=== PATIENT | male | born 1955 | race African-American/Black ===

== ENCOUNTER 2020-08-10 16:25 | IRF | payer OTHER, MEDICARE, SELFPAY ==
[2020-08-10 16:25] VITALS: BP 144/69; PULSE 77; RESP 20; TEMP 37.1; O2SAT 100; BMI 24.4
--- NOTE | 2020-08-10 17:02 | ADMGEN ---
This patient, Chuy Yap, was admitted to [facility] Room 223-02. Patient/family oriented to hospital policies and general routines including ID bracelet, bed and alarms, visiting hours, pain management, procedures, bathroom and other care routines, personal items, smoking policy, room service/diet, and visiting hours. Valuables list has been completed. Information on how to activate the Rapid Response Team has been discussed. Patient/Family are encouraged to report perceived risks to care and to ask questions if they do not understand what they are told or what they should do. Patient arrived to [facility] at 1625, he is alert and oriented, pleasant is c/o pain to right groin, per ambulance personnel the phi were removed immediately prior to transport. The area is swollen and firm not hot, no drainage. ice pack applied, will continue to monitor. Ashlee made aware of patients arrival
[2020-08-10 19:36] VITALS: BMI 24.4
[2020-08-10 20:20] VITALS: BP 158/65; PULSE 87; RESP 18; TEMP 36.9; O2SAT 100
[2020-08-10] MEDS: ATORVASTATIN 40 MG TABLET PO (20:54)
[2020-08-10] MEDS: APIXABAN 5 MG TABLET PO (20:54)
[2020-08-10 20:55] VITALS: PULSE 86
[2020-08-10] MEDS: carvediloL 6.25 MG TABLET PO (20:55)
[2020-08-10] MEDS: levETIRAcetam 500 MG TABLET 1000 MG PO (20:55)
[2020-08-10] MEDS: INSULIN GLARGINE (*BKC) 100 UNITS/ML 10 UNITS SUB-Q (21:02)
[2020-08-10 22:14] LABS: Glucose Point of Care 224 (65-105)
[2020-08-11 04:54] LABS: Basophils Percent Auto 0.3 % (0.2-1.2); Eosinophils Absolute Auto 0.1 K/mm3 (0-0.3); Eosinophils Percent Auto 0.9 % (0-4.4); Hematocrit 27.2 % (42.0-52.0); Hemoglobin 8.6 g/dL (14.0-18.0); Immature Granulocyte Absolute 0.03 K/mm3 (0.00-0.031); Immature Granulocyte Percent A 0.3 % (0-0.5); Lymphocytes Absolute Auto 1.38 K/mm3 (0.9-3.2); Lymphocytes Percent Auto 15.8 % (18.3-44.2); Mean Corpuscular HGB Conc 31.6 g/dl (32-36); Mean Corpuscular Hemoglobin 27.3 pg (26-34); Mean Corpuscular Volume 86.3 fl (80-100); Mean Platelet Volume 10.1 fl (7.4-10.4); Monocytes Absolute Auto 0.4 K/mm3 (0.1-0.6); Monocytes Percent Auto 4.6 % (2.6-8.5); Neutrophils Absolute Auto 6.8 K/mm3 (1.3-6.7); Neutrophils Percent Auto 78.1 % (45.5-73.1); Platelet Count Result 357 k/mm3 (150-375); Red Blood Count 3.15 M/mm3 (4.6-6.20); Red Cell Distribution Width 14.9 % (11.5-14.5); White Blood Count 8.7 K/mm3 (4.5-10.0)
[2020-08-11 05:03] LABS: Hemoglobin A1C 6.4 % (<5.7)
[2020-08-11 05:06] LABS: Anion Gap 3 mmol/L (8-16); Blood Urea Nitrogen 9 mg/dL (9-20); Carbon Dioxide 25 mmol/L (22-30); Chloride 109 mmol/L (98-107); Cholesterol 137 mg/dL (0-200); Estimated CRCL calculation 111 ml/min; Estimated Glomerular Filt Rate > 60; Glucose 185 mg/dL (75-110); HDL Direct 30 mg/dL; Potassium 4.5 mmol/L (3.4-5.0); Sodium 137 mmol/L (137-145); Triglycerides 126 mg/dL (<150)
[2020-08-11 05:16] LABS: LDL Cholesterol Direct 73 mg/dL
[2020-08-11 05:55] VITALS: BP 145/67; PULSE 75; RESP 18; TEMP 36.4; O2SAT 100
[2020-08-11 06:39] LABS: Glucose Point of Care 183 (65-105)
[2020-08-11 09:03] VITALS: PULSE 75
[2020-08-11] MEDS: levETIRAcetam 500 MG TABLET 1000 MG PO ×2 (09:03→20:46)
[2020-08-11] MEDS: carvediloL 6.25 MG TABLET PO ×2 (09:03→20:45)
[2020-08-11] MEDS: metFORMIN HCL 500 MG TABLET 1000 MG PO (09:03)
[2020-08-11] MEDS: APIXABAN 5 MG TABLET PO ×2 (09:03→20:46)
[2020-08-11] MEDS: lisinopriL 10 MG TABLET PO (09:03)
--- NOTE | 2020-08-11 09:30 | WPDREHABHP ---
H&P: HPI History of Present Illness Date/Time: 08/11/20 10:12 Chief complaint: Stroke/ R AKA Narrative: Chuy Yap is a 65 year old male HISTORY OF PRESENT ILLNESS: The patient's primary rehab impairment category is stroke The etiologic diagnosis is right frontal lobe large hemorrhagic infarct I saw this patient [id number] on August 11, 2020 at 9:30 a.m. The patient is a 65-year-old right-handed Afro Citizen Of [place] male with a past medical history of coronary artery disease, hypertension, hyperlipidemia, and diabetes who presented to [facility] on July 23, 2020 early in the afternoon after being found by family between his bed and dresser. The patient was minimally responsive in incontinent of urine. Reportedly the patient had been complaining of a headache over the past [address] of the head revealed right frontal hemorrhage. Given the presence of hemorrhage on the CT scan of the patient's lack of responsiveness the patient was intubated for airway protection and transferred to [facility]. CT angiography showed no evidence of large vessel occlusion. The brain MRI suggested the hemorrhage may have occurred in the background of and ischemic stroke. There was no evidence of underlying mass or structural defect. The patient was transferred to [facility] ICU for further care and management. The patient arrived intubated and was extubated on July 24, 2020. Neurology was consulted. EEG showed generalized slowing as well as focal phase reversal suggesting structural lesion / possible seizure focus. Given that it is unclear if the patient truly had a seizure was simply of tended and incontinent remains unclear. He was placed on Keppra and has remained on it. Vascular surgery was consulted for right ischemic leg. The patient underwent an open thrombectomy of the right femoral-popliteal segment and a 4 compartment fasciotomy of the right calf on July 28, 2020. Postoperatively experienced acute pain and acute blood loss anemia. The patient was monitored ultimately underwent an above-knee amputation on August 05, [address] Rm. The patient received 1 unit of packed RBCs prior to amputation surgery. Neurology and vascular surgery feel patient would benefit from an acute rehab stay to address acute stroke and new amputation. Patient will require all 3 therapies. The patient will be discharged to rehab and 30 day event monitor which he has on, statin and heparin for DVT prophylaxis however it seems like he is on apixaban at this moment. The patient has not traveled outside the [place] or had contact with someone who is ill that has traveled outside the use in the past 21 days. Patient has not traveled to an area of the [place] that is experiencing no transmission of the Coronavirus and has not had close personal contact with anyone that has. Patient does not have a fever. The patient is not experiencing lower respiratory illness symptoms. Patient had COVID-19 and negative test on July 29, 2020 Therapy was initiated at the acute care facility and the patient transferred to us from [facility] on August 10, 2012 FALLS OR SURGERIES: the patient has not any falls in the past year. The patient had major surgeries in her days prior to admission and obviously the present 1 patient has no falls with injury in the past year. The patient reported no falls in the past PAST MEDICAL HISTORY: [] coronary artery disease, hypertension, diabetes mellitus, hyperlipidemia. PAST SURGICAL HISTORY: [] Coronary artery bypass grafting. 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 There is 1 step to enter. Patient was completely independent prior with no assistive device. The patient is available for assisting following rehab if necessary. Patient lives a fishing. No tobacco alcohol or illic
[2020-08-11 11:58] LABS: Glucose Point of Care 195 (65-105)
[2020-08-11 12:41] VITALS: BMI 24.4
[2020-08-11] MEDS: ACETAMINOPHEN 325 MG TABLET PO ×2 (13:31→21:10)
[2020-08-11] MEDS: oxyCODONE/ACETAMINOPHEN 5-325 MG TABLET 1 TABLET PO (13:34)
[2020-08-11 14:00] VITALS: BP 136/70; PULSE 74; RESP 20; TEMP 36.7; O2SAT 98
--- NOTE | 2020-08-11 17:08 | RPD ---
INDIVIDUALIZED PLAN OF CARE FOR Chuy Yap Brief Synthesis of Pre-Admission Screen, Post-Admission Evaluation and Therapy Evaluations: The patient presents to rehab with a right frontal lobe large hemorrhagic infarct (embolic). Comorbidities include hypertension, hyperlipidemia, diabetes mellitus with hyperglycemia, ischemic right leg status post open thrombectomy and four compartment fasciotomy, status post above knee amputation, acute postoperative pain, acute blood loss anemia, questionable seizure on Keppra, heart failure with EF 40%, cardiomyopathy, and coronary artery disease. The complexity of the patient's medical management, nursing, and therapy needs require an inpatient rehab hospital stay with a physician-led interdisciplinary team approach. The patient?s needs will be best met in an intensive program vs. at a lower level of care. The patient requires physician services for neurology services, medical oversight, and coordination of care. Emotional needs will be monitored as depression is a common sequelae of stroke. The patient needs physician monitoring and treatment of anemia, perioperative blood loss, monitoring of infection, stump management, management of diabetes mellitus with hyperglycemia, seizure management with new Keppra medication, monitoring for adverse reactions to new medications, and pain control. The patient requires nursing services for frequent neuro checks, anticoagulation therapy, medication management and education, pressure relief and skin care management, monitoring of labs, bowel and bladder training, diabetes management and education, wound care and fall/safety precautions. Deficits include:ADLs, Balance, Endurance, Family Training/Education, Mobility, Pain Management, ROM, Safety, Speech, Strength, Swallowing, Transfers, and Cognition. 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 Treatments may include: Therapeutic Exercise, Gait Training, Neuromuscular Re-education, Transfer Training, Community Reintegration, Bed Mobility, Patient/Family Education, Wheelchair Mobility Group Therapy/Concurrent Therapy Rationales: -Improve attention span during functional activities in a distracted environment. -Enhance problem solving and/or adequate judgment skills during functional activities in a distracted environment. -Promote increased safety awareness in a distracted environment to reduce fall risk with functional tasks, transfers, and ambulation to allow a more safe, self-sufficient return to the home environment. -Improve dynamic balance skills to promote safety and independence with functional activities in a distracted environment for maximum gain. Occupational Therapy: 5 days per week for 75 minutes. Treatments may include: Therapeutic Exercise, Therapeutic Activity, Cognitive Training, Self-Care Transfer Training, Community Reintegration, Home Management, Patient/Family Education, Wheelchair Mobility Training, Energy Conservation Training Group Therapy/Concurrent Therapy Rationales: -Allow therapist to observe and teach generalization and carry-over of skills learned in individual therapy. -Enhance problem solving and sequencing skills during therapeutic activities in a distracted environment. -Promote increased safety awareness in a realistic setting to reduce fall risk with functional tasks due to visual and verbal distractions. -Increase functional level with ADLs, ADL transfers and use of adaptive equipment through therapeutic activities with others while promoting safety to allow a more safe, self-sufficient return home. Speech Therapy: 5 days per week for 30 minutes. Treatments may include: Dysphasia Therapy, Speech/Language/Communication Therapy, Cognitive Training, Patient/Family Education Group Therapy/Concurrent Therapy - Rationale: -Allow therapist to observe and teach generalization and carry-over of skills learned in individual
[2020-08-11 17:29] LABS: Glucose Point of Care 145 (65-105)
[2020-08-11 20:45] VITALS: PULSE 86
[2020-08-11] MEDS: INSULIN GLARGINE (*BKC) 100 UNITS/ML 10 UNITS SUB-Q (20:52)
[2020-08-11 20:59] LABS: Glucose Point of Care 204 (65-105)
[2020-08-11] MEDS: ATORVASTATIN 40 MG TABLET PO (21:55)
[2020-08-11 22:00] VITALS: BP 143/61; PULSE 84; RESP 20; TEMP 36.8; O2SAT 100
[2020-08-12 06:00] VITALS: BP 145/69; PULSE 86; RESP 20; TEMP 36.6; O2SAT 99
[2020-08-12 06:34] LABS: Glucose Point of Care 161 (65-105)
[2020-08-12] MEDS: oxyCODONE/ACETAMINOPHEN 5-325 MG TABLET 1 TABLET PO (09:13)
[2020-08-12 09:15] VITALS: PULSE 86
[2020-08-12] MEDS: lisinopriL 10 MG TABLET PO (09:15)
[2020-08-12] MEDS: metFORMIN HCL 500 MG TABLET 1000 MG PO (09:15)
[2020-08-12] MEDS: levETIRAcetam 500 MG TABLET 1000 MG PO ×2 (09:15→20:34)
[2020-08-12] MEDS: APIXABAN 5 MG TABLET PO ×2 (09:15→20:34)
[2020-08-12] MEDS: carvediloL 6.25 MG TABLET PO ×2 (09:15→20:34)
--- NOTE | 2020-08-12 10:34 | WPDNEURORHBP ---
Subjective Date/time seen: 08/12/20 10:34 Interval history: this 65-year-old Afro Haitian gentleman is here after having had a stroke or followed by rather prolonged course of illness where he had to have the amputation of the right leg above the knee due to ischemia of the leg He is in good spirits and working in the rehab quite a bit denies any headache nausea vomiting chest pain shortness of breath fever chills sore Review of Systems Review of Systems: All systems reviewed & are unremarkable except as noted in HPI and below Functional Status Ambulation Ability Ability to Ambulate 10 Feet: Contact Guard Ambulation Assistive Devices: Walker, Wheeled Transfers Ability Ability to Transfer In/Out of Chair: Contact Guard Exam Const: General: comfortable and no acute distress HENMT: General nose exam: Normal nares present Mouth: Yes moist mucous membranes Eyes: General: appearance normal, both eyes and all related structures Neck: Neck: supple and no JVD Resp: Effort & Inspection: normal respiratory effort Auscultation: clear to auscultation bilaterally Cardio: Rate: regular rate Rhythm: regular rhythm GI: GI Palp: Yes Soft to palpation Auscultation: normal bowel sounds Skin: General skin exam: normal color and no rashes or lesions noted Neuro: Other: patient is awake alert well oriented to time place person has normal speech and language function and right-sided weakness and right above the knee amputation Extrem: Other: right AKA - stable no drainage noted Psych: Mental Status: mental status grossly normal Objective Data Vital Signs Vital Signs: Vital Signs - 24 hr 08/11/20 14:00 08/11/20 20:45 08/11/20 22:00 Temperature 36.7 C 36.8 C Pulse Rate 74 86 84 Respiratory Rate 20 20 Blood Pressure 136/70 143/61 H Pulse Oximetry 98 100 08/12/20 06:00 08/12/20 09:15 Temperature 36.6 C Pulse Rate 86 86 Respiratory Rate 20 Blood Pressure 145/69 H Pulse Oximetry 99 Intake/Output Intake/Output: Intake & Output 08/09/20 08/10/20 08/11/20 08/12/20 23:59 23:59 23:59 23:59 Intake Total 240 720 240 Balance 240 720 240 Meds/Results Medications: Active Medications Generic Name Dose Route Start Last Admin Trade Name Freq PRN Reason Stop Dose Admin Acetaminophen 325 mg 08/10/20 19:29 08/11/20 21:10 Tylenol Tablet PO 325 mg Q4H PRN Administration Pain (Scale Score 4-6) Apixaban 5 mg 08/10/20 21:00 08/12/20 09:15 Eliquis PO 5 mg Q12HR ELLIOT Administration Atorvastatin Calcium 40 mg 08/10/20 21:00 08/11/20 21:55 Lipitor PO 40 mg HS ELLIOT Administration Carvedilol 6.25 mg 08/10/20 21:00 08/12/20 09:15 Coreg PO 6.25 mg Q12HR ELLIOT Administration Insulin Glargine 10 units 08/10/20 21:00 08/11/20 20:52 Lantus SUB-Q 10 units HS ELLIOT Administration Levetiracetam 1,000 mg 08/10/20 21:00 08/12/20 09:15 Keppra Tablet PO 1,000 mg Q12HR ELLIOT Administration Lisinopril 10 mg 08/11/20 09:00 08/12/20 09:15 Prinivil PO 10 mg DAILY ELLIOT Administration Metformin HCl 1,000 mg 08/11/20 09:00 08/12/20 09:15 Glucophage PO 1,000 mg DAILY ELLIOT Administration Oxycodone/Acetaminophen 1 tablet 08/10/20 17:53 08/12/20 09:13 Percocet 5-325 Mg PO 1 tablet Q4H PRN Administration Pain (Scale Score 7-10) Polyethylene Glycol 17 gm 08/10/20 17:53 Miralax PO DAILY PRN Constipation Labs Labs: Laboratory Results - last 24 hr 08/11/20 08/11/20 08/11/20 11:55 17:18 20:56 POC Capillary Glucose 195 H 145 H 204 H 08/12/20 06:25 POC Capillary Glucose 161 H Progress Note: A&P Assessment and Plan (1) History of loop recorder: Code(s): Z98.890 - Other specified postprocedural states Status: Acute (2) Hypertension: Code(s): I10 - Essential (primary) hypertension Status: Acute (3) Diabetes mellitus: Code(s): E11.9 - Type 2 diabetes miladis
[2020-08-12 11:59] LABS: Glucose Point of Care 223 (65-105)
[2020-08-12 14:00] VITALS: BP 125/56; PULSE 82; RESP 16; TEMP 36.2; O2SAT 100
[2020-08-12 16:48] LABS: Glucose Point of Care 198 (65-105)
[2020-08-12] MEDS: INSULIN GLARGINE (*BKC) 100 UNITS/ML 10 UNITS SUB-Q (20:34)
[2020-08-12] MEDS: ATORVASTATIN 40 MG TABLET PO (20:34)
[2020-08-12 20:39] VITALS: BP 119/57; PULSE 55; RESP 18; TEMP 36.8; O2SAT 99
[2020-08-12 21:41] LABS: Glucose Point of Care 180 (65-105)
[2020-08-13 05:43] VITALS: BP 129/74; PULSE 84; RESP 18; TEMP 36.3; O2SAT 100
[2020-08-13 06:41] LABS: Glucose Point of Care 171 (65-105)
[2020-08-13] MEDS: ACETAMINOPHEN 325 MG TABLET PO ×2 (08:39→20:13)
[2020-08-13 08:40] VITALS: PULSE 84
[2020-08-13] MEDS: APIXABAN 5 MG TABLET PO ×2 (08:40→20:11)
[2020-08-13] MEDS: carvediloL 6.25 MG TABLET PO ×2 (08:40→20:11)
[2020-08-13] MEDS: BACITRACIN/POLYMYXIN B OINT 15 GM TUBE 1 APPLIC TOPICAL ×2 (08:40→08:41)
[2020-08-13] MEDS: metFORMIN HCL 500 MG TABLET 1000 MG PO (08:41)
[2020-08-13] MEDS: levETIRAcetam 500 MG TABLET 1000 MG PO ×2 (08:41→22:53)
[2020-08-13] MEDS: lisinopriL 10 MG TABLET PO (08:41)
[2020-08-13 11:59] LABS: Glucose Point of Care 181 (65-105)
[2020-08-13 14:00] VITALS: BP 125/94; PULSE 73; RESP 20; TEMP 36.3; O2SAT 100
[2020-08-13 17:03] LABS: Glucose Point of Care 194 (65-105)
[2020-08-13] MEDS: INSULIN GLARGINE (*BKC) 100 UNITS/ML 10 UNITS SUB-Q (20:08)
[2020-08-13 20:11] VITALS: PULSE 80
[2020-08-13] MEDS: ATORVASTATIN 40 MG TABLET PO (20:11)
[2020-08-13 21:15] LABS: Glucose Point of Care 192 (65-105)
[2020-08-13 21:16] VITALS: BP 129/63; PULSE 86; RESP 18; TEMP 37; O2SAT 98
[2020-08-13] MEDS: oxyCODONE/ACETAMINOPHEN 5-325 MG TABLET 1 TABLET PO (22:51)
[2020-08-14 05:20] VITALS: BP 126/53; PULSE 68; RESP 18; TEMP 36.3; O2SAT 100
[2020-08-14 06:18] LABS: Glucose Point of Care 183 (65-105)
[2020-08-14] MEDS: oxyCODONE/ACETAMINOPHEN 5-325 MG TABLET 1 TABLET PO ×3 (07:46→20:55)
[2020-08-14] MEDS: APIXABAN 5 MG TABLET PO ×2 (08:44→20:56)
[2020-08-14] MEDS: lisinopriL 10 MG TABLET PO (08:44)
[2020-08-14] MEDS: levETIRAcetam 500 MG TABLET 1000 MG PO ×2 (08:44→20:58)
[2020-08-14] MEDS: metFORMIN HCL 500 MG TABLET 1000 MG PO (08:44)
[2020-08-14 08:45] VITALS: PULSE 68
[2020-08-14] MEDS: carvediloL 6.25 MG TABLET PO ×2 (08:45→20:57)
[2020-08-14] MEDS: BACITRACIN/POLYMYXIN B OINT 15 GM TUBE 1 APPLIC TOPICAL (09:26)
--- NOTE | 2020-08-14 10:47 | WPDNEURORHBP ---
Subjective Date/time seen: 08/14/20 10:47 Interval history: this 65-year-old Afro Libyan gentleman is here after having had a right above the knee amputation. Apart from the pain the patient is doing fairly well he denies any headache nausea vomiting chest pain shortness of breath fever chills sore throat and there is no confusional state noted as it was yesterday morning Review of Systems Review of Systems: All systems reviewed & are unremarkable except as noted in HPI and below Functional Status Ambulation Ability Ability to Ambulate 10 Feet: Contact Guard Ambulation Assistive Devices: Walker, Wheeled Transfers Ability Ability to Transfer In/Out of Chair: Contact Guard Exam Const: General: comfortable and no acute distress HENMT: General nose exam: Normal nares present Mouth: Yes moist mucous membranes Eyes: General: appearance normal, both eyes and all related structures Neck: Neck: supple and no JVD Resp: Effort & Inspection: normal respiratory effort Auscultation: clear to auscultation bilaterally Cardio: Rate: regular rate Rhythm: regular rhythm GI: GI Palp: Yes Soft to palpation Auscultation: normal bowel sounds Skin: General skin exam: normal color and no rashes or lesions noted Neuro: Other: patient is awake alert and well oriented to time place and person has normal speech and language function normal cranial examination as a right AKA and needing assistance all the activities of daily living Extrem: Other: right AKA is clean Psych: Mental Status: mental status grossly normal Objective Data Vital Signs Vital Signs: Vital Signs - 24 hr 08/13/20 14:00 08/13/20 20:11 08/13/20 21:16 Temperature 36.3 C L 37.0 C Pulse Rate 73 80 86 Respiratory Rate 20 18 Blood Pressure 125/94 H 129/63 Pulse Oximetry 100 98 08/14/20 05:20 08/14/20 08:45 Temperature 36.3 C L Pulse Rate 68 68 Respiratory Rate 18 Blood Pressure 126/53 L Pulse Oximetry 100 Intake/Output Intake/Output: Intake & Output 08/11/20 08/12/20 08/13/20 08/14/20 23:59 23:59 23:59 23:59 Intake Total 720 960 720 120 Balance 720 960 720 120 Meds/Results Medications: Active Medications Generic Name Dose Route Start Last Admin Trade Name Freq PRN Reason Stop Dose Admin Acetaminophen 325 mg 08/10/20 19:29 08/13/20 20:13 Tylenol Tablet PO 325 mg Q4H PRN Administration Pain (Scale Score 4-6) Apixaban 5 mg 08/10/20 21:00 08/14/20 08:44 Eliquis PO 5 mg Q12HR ELLIOT Administration Atorvastatin Calcium 40 mg 08/10/20 21:00 08/13/20 20:11 Lipitor PO 40 mg HS ELLIOT Administration Bacitracin/Polymyxin B Sulfate 1 applic 08/12/20 09:00 08/13/20 08:41 Polysporin TOPICAL 1 applic DAILY ELLIOT Administration Carvedilol 6.25 mg 08/10/20 21:00 08/14/20 08:45 Coreg PO 6.25 mg Q12HR ELLIOT Administration Insulin Glargine 10 units 08/10/20 21:00 08/13/20 20:08 Lantus SUB-Q 10 units HS ELLIOT Administration Levetiracetam 1,000 mg 08/10/20 21:00 08/14/20 08:44 Keppra Tablet PO 1,000 mg Q12HR ELLIOT Administration Lisinopril 10 mg 08/11/20 09:00 08/14/20 08:44 Prinivil PO 10 mg DAILY ELLIOT Administration Metformin HCl 1,000 mg 08/11/20 09:00 08/14/20 08:44 Glucophage PO 1,000 mg DAILY ELLIOT Administration Oxycodone/Acetaminophen 1 tablet 08/10/20 17:53 08/14/20 07:46 Percocet 5-325 Mg PO 1 tablet Q4H PRN Administration Pain (Scale Score 7-10) Polyethylene Glycol 17 gm 08/10/20 17:53 Miralax PO DAILY PRN Constipation Labs Labs: Laboratory Results - last 24 hr 08/13/20 08/13/20 08/13/20 11:57 16:55 20:08 POC Capillary Glucose 181 H 194 H 192 H 08/14/20 06:11 POC Capillary Glucose 183 H Progress Note: A&P Assessment and Plan (1) History of loop recorder: Code(s): Z98.890 - Other specified postprocedural states Status: Acute (2) Hypertension: Code(s):
--- NOTE | 2020-08-14 13:14 | PCDIET ---
Nutrition Follow-Up Complete: Nutrition Diagnosis: Increased protein needs related to increased demands for healing as evidenced by recent AKA. Nutrition Goal: Patient to consume 75% of meals/supplements or greater. Goal met. Patient consuming 100% of most meals on diabetic diet. Reports liking Brenton supplement which is provided twice daily. Encouraged continued acceptance to potentially aid in healing. CVA nutrition education provided this date. Last recorded weight is 79.5 kg. Recommend obtaining new weight. Bowel Motility: Last BM on 08/13/20, per nursing flowsheet. Labs Reviewed: Glu (183) Meds Noted: Lipitor, Lantus, Glucophage Additional Notes: Incisions to right leg and right groin. No documented pressure sores. Will continue to monitor with same goal. Nutrition Monitoring and Evaluation: Follow up in 7 days.
[2020-08-14 14:00] VITALS: BP 98/75; PULSE 78; RESP 18; TEMP 36.6; O2SAT 100
[2020-08-14 20:57] VITALS: PULSE 80
[2020-08-14] MEDS: ATORVASTATIN 40 MG TABLET PO (20:57)
[2020-08-14] MEDS: INSULIN GLARGINE (*BKC) 100 UNITS/ML 10 UNITS SUB-Q (21:09)
[2020-08-14 21:38] LABS: Glucose Point of Care 167 (65-105)
[2020-08-14 22:00] VITALS: BP 121/61; PULSE 88; RESP 18; TEMP 36.7; O2SAT 99
[2020-08-15 06:00] VITALS: BP 118/61; PULSE 74; RESP 18; TEMP 36.3; O2SAT 99
[2020-08-15 06:47] LABS: Glucose Point of Care 177 (65-105)
[2020-08-15] MEDS: lisinopriL 10 MG TABLET PO (09:07)
[2020-08-15] MEDS: APIXABAN 5 MG TABLET PO ×2 (09:07→19:47)
[2020-08-15] MEDS: levETIRAcetam 500 MG TABLET 1000 MG PO ×2 (09:07→19:47)
[2020-08-15] MEDS: ACETAMINOPHEN 325 MG TABLET PO (09:07)
[2020-08-15] MEDS: oxyCODONE/ACETAMINOPHEN 5-325 MG TABLET 1 TABLET PO ×2 (09:08→19:55)
[2020-08-15] MEDS: metFORMIN HCL 500 MG TABLET 1000 MG PO (10:10)
[2020-08-15 10:11] VITALS: PULSE 74
[2020-08-15] MEDS: carvediloL 6.25 MG TABLET PO ×2 (10:11→19:47)
[2020-08-15 12:08] LABS: Glucose Point of Care 177 (65-105)
[2020-08-15 14:00] VITALS: BP 121/56; PULSE 70; RESP 20; TEMP 36.3; O2SAT 100
[2020-08-15] MEDS: BACITRACIN/POLYMYXIN B OINT 15 GM TUBE 1 APPLIC TOPICAL (17:13)
[2020-08-15 17:51] LABS: Glucose Point of Care 155 (65-105)
[2020-08-15 19:47] VITALS: PULSE 72
[2020-08-15] MEDS: INSULIN GLARGINE (*BKC) 100 UNITS/ML 10 UNITS SUB-Q (19:59)
[2020-08-15 20:53] LABS: Glucose Point of Care 182 (65-105)
[2020-08-15 21:57] VITALS: BP 117/61; PULSE 75; RESP 18; TEMP 36.8; O2SAT 100
[2020-08-16] MEDS: ATORVASTATIN 40 MG TABLET PO ×2 (05:42→20:09)
[2020-08-16 06:00] VITALS: BP 117/68; PULSE 74; RESP 18; TEMP 36.6; O2SAT 100
[2020-08-16 06:47] LABS: Glucose Point of Care 185 (65-105)
[2020-08-16] MEDS: levETIRAcetam 500 MG TABLET 1000 MG PO ×2 (08:27→20:09)
[2020-08-16 08:28] VITALS: PULSE 74
[2020-08-16] MEDS: lisinopriL 10 MG TABLET PO (08:28)
[2020-08-16] MEDS: APIXABAN 5 MG TABLET PO ×2 (08:28→20:09)
[2020-08-16] MEDS: carvediloL 6.25 MG TABLET PO ×2 (08:28→20:09)
[2020-08-16] MEDS: metFORMIN HCL 500 MG TABLET 1000 MG PO (08:28)
[2020-08-16] MEDS: BACITRACIN/POLYMYXIN B OINT 15 GM TUBE 1 APPLIC TOPICAL (08:48)
[2020-08-16] MEDS: oxyCODONE/ACETAMINOPHEN 5-325 MG TABLET 1 TABLET PO (09:54)
[2020-08-16 12:24] LABS: Glucose Point of Care 198 (65-105)
[2020-08-16 14:00] VITALS: BP 104/61; PULSE 98; RESP 20; TEMP 36.9; O2SAT 100
[2020-08-16 17:24] LABS: Glucose Point of Care 174 (65-105)
--- NOTE | 2020-08-16 17:41 | WPDNEURORHBP ---
Subjective Date/time seen: 08/16/20 17:41 Interval history: this 65-year-old Afro Ecuadorean gentleman is here after having had a right AKA The nursing complains of some confusional state however his told the same nurse that that is the way he is so that is probably his baseline the patient denies any headache nausea vomiting chest pain shortness of breath fever chills sore throat Review of Systems Review of Systems: All systems reviewed & are unremarkable except as noted in HPI and below Functional Status Ambulation Ability Ability to Ambulate 10 Feet: Contact Guard Ambulation Assistive Devices: Walker, Wheeled Transfers Ability Ability to Transfer In/Out of Chair: Contact Guard Exam Const: General: comfortable and no acute distress HENMT: General nose exam: Normal nares present Mouth: Yes moist mucous membranes Eyes: General: appearance normal, both eyes and all related structures Neck: Neck: supple and no JVD Resp: Effort & Inspection: normal respiratory effort Auscultation: clear to auscultation bilaterally Cardio: Rate: regular rate Rhythm: regular rhythm GI: GI Palp: Yes Soft to palpation Auscultation: normal bowel sounds Skin: General skin exam: normal color and no rashes or lesions noted Neuro: Other: patient is awake alert well oriented normal speech and function normal cranial nerve improving strength overall Extrem: Other: left AKA rather right AKA is clean Psych: Mental Status: mental status grossly normal Objective Data Vital Signs Vital Signs: Vital Signs - 24 hr 08/15/20 19:47 08/15/20 21:57 08/16/20 06:00 Temperature 36.8 C 36.6 C Pulse Rate 72 75 74 Respiratory Rate 18 18 Blood Pressure 117/61 117/68 Pulse Oximetry 100 100 08/16/20 08:28 08/16/20 14:00 Temperature 36.9 C Pulse Rate 74 98 Respiratory Rate 20 Blood Pressure 104/61 Pulse Oximetry 100 Intake/Output Intake/Output: Intake & Output 08/13/20 08/14/20 08/15/20 08/16/20 23:59 23:59 23:59 23:59 Intake Total 720 600 720 480 Balance 720 600 720 480 Meds/Results Medications: Active Medications Generic Name Dose Route Start Last Admin Trade Name Freq PRN Reason Stop Dose Admin Acetaminophen 325 mg 08/10/20 19:29 08/15/20 09:07 Tylenol Tablet PO 325 mg Q4H PRN Administration Pain (Scale Score 4-6) Apixaban 5 mg 08/10/20 21:00 08/16/20 08:28 Eliquis PO 5 mg Q12HR ELLIOT Administration Atorvastatin Calcium 40 mg 08/10/20 21:00 08/16/20 05:42 Lipitor PO 40 mg HS ELLIOT Administration Bacitracin/Polymyxin B Sulfate 1 applic 08/12/20 09:00 08/16/20 08:48 Polysporin TOPICAL 1 applic DAILY ELLIOT Administration Carvedilol 6.25 mg 08/10/20 21:00 08/16/20 08:28 Coreg PO 6.25 mg Q12HR ELLIOT Administration Insulin Glargine 10 units 08/10/20 21:00 08/15/20 19:59 Lantus SUB-Q 10 units HS ELLIOT Administration Levetiracetam 1,000 mg 08/10/20 21:00 08/16/20 08:27 Keppra Tablet PO 1,000 mg Q12HR ELLIOT Administration Lisinopril 10 mg 08/11/20 09:00 08/16/20 08:28 Prinivil PO 10 mg DAILY ELLIOT Administration Metformin HCl 1,000 mg 08/11/20 09:00 08/16/20 08:28 Glucophage PO 1,000 mg DAILY ELLIOT Administration Oxycodone/Acetaminophen 1 tablet 08/10/20 17:53 08/16/20 09:54 Percocet 5-325 Mg PO 1 tablet Q4H PRN Administration Pain (Scale Score 7-10) Polyethylene Glycol 17 gm 08/10/20 17:53 Miralax PO DAILY PRN Constipation Labs Labs: Laboratory Results - last 24 hr 08/15/20 08/15/20 08/16/20 17:36 19:52 06:25 POC Capillary Glucose 155 H 182 H 185 H 08/16/20 08/16/20 12:09 17:21 POC Capillary Glucose 198 H 174 H Progress Note: A&P Assessment and Plan (1) History of loop recorder: Code(s): Z98.890 - Other specified postprocedural states Status: Acute (2) Hypertension: Code(s): I10 - Essential (primary) hypertension Status:
[2020-08-16 20:09] VITALS: PULSE 98
[2020-08-16] MEDS: INSULIN GLARGINE (*BKC) 100 UNITS/ML 10 UNITS SUB-Q (20:09)
[2020-08-16 20:36] LABS: Glucose Point of Care 196 (65-105)
[2020-08-16 21:40] VITALS: BP 112/54; PULSE 94; RESP 18; TEMP 36.6; O2SAT 99
[2020-08-17 05:53] VITALS: BP 106/55; PULSE 87; RESP 18; TEMP 36.2; O2SAT 100
[2020-08-17 06:57] LABS: Glucose Point of Care 207 (65-105)
[2020-08-17 07:52] VITALS: PULSE 87
[2020-08-17] MEDS: carvediloL 6.25 MG TABLET PO ×2 (07:52→20:25)
[2020-08-17] MEDS: APIXABAN 5 MG TABLET PO ×2 (07:52→20:25)
[2020-08-17] MEDS: BACITRACIN/POLYMYXIN B OINT 15 GM TUBE 1 APPLIC TOPICAL (07:53)
[2020-08-17] MEDS: metFORMIN HCL 500 MG TABLET 1000 MG PO (07:53)
[2020-08-17] MEDS: levETIRAcetam 500 MG TABLET 1000 MG PO ×2 (07:53→20:25)
[2020-08-17] MEDS: lisinopriL 10 MG TABLET PO (07:53)
--- NOTE | 2020-08-17 10:56 | WPDNEURORHBP ---
Subjective Date/time seen: 08/17/20 10:56 65 years old admitted to rehab with a Ki a along with some confusional state at present complains of no headache nausea vomiting or difficulties in breathing Review of Systems Review of Systems: All systems reviewed & are unremarkable except as noted in HPI and below Functional Status Ambulation Ability Ability to Ambulate 10 Feet: Contact Guard Ambulation Assistive Devices: Walker, Wheeled Transfers Ability Ability to Transfer In/Out of Chair: Contact Guard Exam Narrative: Exam Narrative: examination reveals him to be awake alert comfortable ear nose throat examination normal with no obvious signs of dehydration eyes are normal neck is supple with full range of motions no JVD lungs clear to auscultation with no rhonchi or crepitation abdomen is soft normal bowel sounds nontender skin clear neurologically he is awake alert follow the instruction is speech normal cranial nerve examination is normal strength is definitely improving otherwise right above knee amputation wound clean Objective Data Vital Signs Vital Signs: Vital Signs - 24 hr 08/16/20 14:00 08/16/20 20:09 08/16/20 21:40 Temperature 36.9 C 36.6 C Pulse Rate 98 98 94 Respiratory Rate 20 18 Blood Pressure 104/61 112/54 L Pulse Oximetry 100 99 08/17/20 05:53 08/17/20 07:52 Temperature 36.2 C L Pulse Rate 87 87 Respiratory Rate 18 Blood Pressure 106/55 L Pulse Oximetry 100 Intake/Output Intake/Output: Intake & Output 08/14/20 08/15/20 08/16/20 08/17/20 23:59 23:59 23:59 23:59 Intake Total 600 720 480 360 Balance 600 720 480 360 Meds/Results Medications: Active Medications Generic Name Dose Route Start Last Admin Trade Name Freq PRN Reason Stop Dose Admin Acetaminophen 325 mg 08/10/20 19:29 08/15/20 09:07 Tylenol Tablet PO 325 mg Q4H PRN Administration Pain (Scale Score 4-6) Apixaban 5 mg 08/10/20 21:00 08/17/20 07:52 Eliquis PO 5 mg Q12HR ELLIOT Administration Atorvastatin Calcium 40 mg 08/10/20 21:00 08/16/20 20:09 Lipitor PO 40 mg HS ELLIOT Administration Bacitracin/Polymyxin B Sulfate 1 applic 08/12/20 09:00 09/21/20 07:53 Polysporin TOPICAL 1 applic DAILY ELLIOT Administration Carvedilol 6.25 mg 08/10/20 21:00 08/17/20 07:52 Coreg PO 6.25 mg Q12HR ELLITO Administration Insulin Glargine 10 units 08/10/20 21:00 08/16/20 20:09 Lantus SUB-Q 10 units HS ELLIOT Administration Levetiracetam 1,000 mg 08/10/20 21:00 08/17/20 07:53 Keppra Tablet PO 1,000 mg Q12HR ELLIOT Administration Lisinopril 10 mg 08/11/20 09:00 08/17/20 07:53 Prinivil PO 10 mg DAILY ELLIOT Administration Metformin HCl 1,000 mg 08/11/20 09:00 08/17/20 07:53 Glucophage PO 1,000 mg DAILY ELLIOT Administration Oxycodone/Acetaminophen 1 tablet 08/10/20 17:53 08/16/20 09:54 Percocet 5-325 Mg PO 1 tablet Q4H PRN Administration Pain (Scale Score 7-10) Polyethylene Glycol 17 gm 08/10/20 17:53 Miralax PO DAILY PRN Constipation Labs Labs: Laboratory Results - last 24 hr 08/16/20 08/16/20 08/16/20 12:09 17:21 20:08 POC Capillary Glucose 198 H 174 H 196 H 08/17/20 06:50 POC Capillary Glucose 207 H Progress Note: A&P Assessment and Plan (1) History of loop recorder: Code(s): Z98.890 - Other specified postprocedural states Status: Acute (2) Hypertension: Code(s): I10 - Essential (primary) hypertension Status: Acute (3) Diabetes mellitus: Code(s): E11.9 - Type 2 diabetes mellitus without complications Status: Acute (4) Unilateral AKA: Code(s): S78.119A - Complete traumatic amputation at level between unspecified hip and knee, initial encounter Status: Acute (5) Acute hemorrhagic infarction of brain: Code(s): I63.89 - Other cerebral infarction Status: Acute (6) Stroke: Code(s): I63.9 - Cerebral infarcti
[2020-08-17] MEDS: ACETAMINOPHEN 325 MG TABLET PO (13:35)
[2020-08-17 14:00] VITALS: BP 106/68; PULSE 88; RESP 16; TEMP 36.1; O2SAT 100
[2020-08-17 20:14] LABS: Glucose Point of Care 171 (65-105)
[2020-08-17 20:25] VITALS: PULSE 88
[2020-08-17] MEDS: INSULIN GLARGINE (*BKC) 100 UNITS/ML 10 UNITS SUB-Q (20:25)
[2020-08-17] MEDS: ATORVASTATIN 40 MG TABLET PO (20:25)
[2020-08-17 22:00] VITALS: BP 126/55; PULSE 84; RESP 16; TEMP 36.6; O2SAT 100
[2020-08-18] VITALS (14 sets, daily range): BP systolic 106–146; BP diastolic 47–68; PULSE 66–102; RESP 16–20; TEMP 36.5–37.4; O2SAT 98–100
[2020-08-18 04:47] LABS: Basophils Percent Auto 0.4 % (0.2-1.2); Eosinophils Absolute Auto 0.1 K/mm3 (0-0.3); Immature Granulocyte Absolute 0.03 K/mm3 (0.00-0.031); Immature Granulocyte Percent A 0.4 % (0-0.5); Lymphocytes Percent Auto 20.7 % (18.3-44.2); Mean Corpuscular HGB Conc 32.3 g/dl (32-36); Mean Corpuscular Hemoglobin 27.9 pg (26-34); Mean Corpuscular Volume 86.3 fl (80-100); Mean Platelet Volume 10.7 fl (7.4-10.4); Monocytes Absolute Auto 0.4 K/mm3 (0.1-0.6); Monocytes Percent Auto 6.1 % (2.6-8.5); Neutrophils Absolute Auto 5.2 K/mm3 (1.3-6.7); Neutrophils Percent Auto 71.4 % (45.5-73.1); Platelet Count Result 250 k/mm3 (150-375); Red Blood Count 2.19 M/mm3 (4.6-6.20); Red Cell Distribution Width 14.2 % (11.5-14.5); White Blood Count 7.2 K/mm3 (4.5-10.0)
[2020-08-18 04:55] LABS: Hematocrit 18.9 % (42.0-52.0); Hemoglobin 6.1 g/dL (14.0-18.0)
[2020-08-18 05:04] LABS: Anion Gap 6 mmol/L (8-16); Blood Urea Nitrogen 40 mg/dL (9-20); Calcium 8.7 mg/dL (8.4-10.2); Carbon Dioxide 25 mmol/L (22-30); Chloride 105 mmol/L (98-107); Estimated CRCL calculation 97 ml/min; Estimated Glomerular Filt Rate > 60; Glucose 217 mg/dL (75-110); Potassium 4.6 mmol/L (3.4-5.0); Sodium 136 mmol/L (137-145)
[2020-08-18 06:11] LABS: Glucose Point of Care 205 (65-105)
[2020-08-18] MEDS: APIXABAN 5 MG TABLET PO ×2 (10:46→20:19)
[2020-08-18] MEDS: levETIRAcetam 500 MG TABLET 1000 MG PO ×2 (10:46→20:19)
[2020-08-18] MEDS: BACITRACIN/POLYMYXIN B OINT 15 GM TUBE 1 APPLIC TOPICAL (10:47)
[2020-08-18] MEDS: metFORMIN HCL 500 MG TABLET 1000 MG PO (10:47)
[2020-08-18] MEDS: carvediloL 6.25 MG TABLET PO ×2 (10:47→20:19)
[2020-08-18 12:14] LABS: Glucose Point of Care 235 (65-105)
--- NOTE | 2020-08-18 15:12 | WPDNEURORHBP ---
Subjective Date/time seen: 08/18/20 15:12 Interval history: this 65-year-old gentleman is here who initially had a stroke which was right frontal hemorrhagic and complicated by the right above the knee amputation. The patient hemoglobin dropped from 8 to around 6 and needs the packed RBCs transfusion otherwise is stable and at his baseline denies any headache nausea vomiting chest pain shortness of breath fever chills sore throat Review of Systems Review of Systems: All systems reviewed & are unremarkable except as noted in HPI and below Functional Status Ambulation Ability Ability to Ambulate 10 Feet: Contact Guard Ambulation Assistive Devices: Walker, Wheeled Transfers Ability Ability to Transfer In/Out of Chair: Contact Guard Exam Const: General: comfortable and no acute distress HENMT: General nose exam: Normal nares present Mouth: Yes moist mucous membranes Eyes: General: appearance normal, both eyes and all related structures Neck: Neck: supple and no JVD Resp: Effort & Inspection: normal respiratory effort Auscultation: clear to auscultation bilaterally Cardio: Rate: regular rate Rhythm: regular rhythm GI: GI Palp: Yes Soft to palpation Auscultation: normal bowel sounds Skin: General skin exam: normal color and no rashes or lesions noted Neuro: Other: patient is awake alert with mild cognitive deficit which according to his is probably his baseline some of it could be related to the hemorrhagic stroke with right frontal lobe with a frontal lobe affect otherwise his weakness and a right above the knee amputation is stable and making progress in the rehab Extrem: Other: right [id number] amputation Psych: Mental Status: mental status grossly normal Objective Data Vital Signs Vital Signs: Vital Signs - 24 hr 08/17/20 20:25 08/17/20 22:00 08/18/20 06:00 Temperature 36.6 C 36.8 C Pulse Rate 88 84 87 Respiratory Rate 16 18 Blood Pressure 126/55 L 146/61 H Pulse Oximetry 100 100 08/18/20 08:05 08/18/20 08:25 08/18/20 09:25 Temperature 37.2 C 37.4 C 36.9 C Pulse Rate 93 96 89 Respiratory Rate 20 20 16 Blood Pressure 122/61 122/61 114/57 L Pulse Oximetry 100 100 100 08/18/20 10:25 08/18/20 10:47 08/18/20 11:25 Temperature 36.6 C 36.5 C Pulse Rate 92 92 89 Respiratory Rate 16 16 Blood Pressure 113/52 L 116/55 L Pulse Oximetry 99 100 08/18/20 14:00 Temperature 37.0 C Pulse Rate 66 Respiratory Rate 18 Blood Pressure 106/55 L Pulse Oximetry 98 Intake/Output Intake/Output: Intake & Output 08/15/20 08/16/20 08/17/20 08/18/20 23:59 23:59 23:59 23:59 Intake Total 720 480 720 720 Balance 720 480 720 720 Meds/Results Medications: Active Medications Generic Name Dose Route Start Last Admin Trade Name Freq PRN Reason Stop Dose Admin Acetaminophen 325 mg 08/10/20 19:29 08/17/20 13:35 Tylenol Tablet PO 325 mg Q4H PRN Administration Pain (Scale Score 4-6) Apixaban 5 mg 08/10/20 21:00 08/18/20 10:46 Eliquis PO 5 mg Q12HR ELLIOT Administration Atorvastatin Calcium 40 mg 08/10/20 21:00 08/17/20 20:25 Lipitor PO 40 mg HS ELLIOT Administration Bacitracin/Polymyxin B Sulfate 1 applic 08/12/20 09:00 08/18/20 10:47 Polysporin TOPICAL 1 applic DAILY ELLIOT Administration Carvedilol 6.25 mg 08/10/20 21:00 08/18/20 10:47 Coreg PO 6.25 mg Q12HR ELLIOT Administration Insulin Glargine 10 units 08/10/20 21:00 08/17/20 20:25 Lantus SUB-Q 10 units HS ELLIOT Administration Levetiracetam 1,000 mg 08/10/20 21:00 08/18/20 10:46 Keppra Tablet PO 1,000 mg Q12HR ELLIOT Administration Lisinopril 10 mg 08/11/20 09:00 08/17/20 07:53 Prinivil PO 10 mg DAILY ELLIOT Administration Metformin HCl 1,000 mg 08/11/20 09:00 08/18/20 10:47 Glucophage PO 1,000 mg DAILY ELLIOT Administration Oxycodone/Acetaminophen 1 tablet 08/10/20 17:53 08/16/20 09:54 Percocet 5-325 Mg PO 1 tablet Q4H PRN
[2020-08-18 17:34] LABS: Glucose Point of Care 172 (65-105)
[2020-08-18] MEDS: ACETAMINOPHEN 325 MG TABLET PO (20:18)
[2020-08-18] MEDS: ATORVASTATIN 40 MG TABLET PO (20:19)
[2020-08-18] MEDS: INSULIN GLARGINE (*BKC) 100 UNITS/ML 10 UNITS SUB-Q (20:20)
[2020-08-18 20:45] LABS: Glucose Point of Care 184 (65-105)
[2020-08-19 04:51] LABS: Hematocrit 25.5 % (42.0-52.0); Hemoglobin 8.4 g/dL (14.0-18.0)
[2020-08-19 05:54] VITALS: BP 141/67; PULSE 79; RESP 18; TEMP 36.5; O2SAT 100
[2020-08-19 06:36] LABS: Glucose Point of Care 143 (65-105)
[2020-08-19 08:21] VITALS: PULSE 72
[2020-08-19] MEDS: metFORMIN HCL 500 MG TABLET 1000 MG PO (08:21)
[2020-08-19] MEDS: APIXABAN 5 MG TABLET PO ×2 (08:21→22:12)
[2020-08-19] MEDS: carvediloL 6.25 MG TABLET PO ×2 (08:21→22:12)
[2020-08-19] MEDS: levETIRAcetam 500 MG TABLET 1000 MG PO ×2 (08:22→22:12)
[2020-08-19] MEDS: BACITRACIN/POLYMYXIN B OINT 15 GM TUBE 1 APPLIC TOPICAL (09:18)
--- NOTE | 2020-08-19 12:11 | WPDNEURORHBP ---
Subjective Date/time seen: 08/19/20 12:11 Interval history: this 65-year-old gentleman is here because of a right AKA which followed the initial stroke which was hemorrhagic the patient received the blood transfusion yesterday and his hemoglobin has improved to 8.4 and hematocrit 25.5 he is doing fairly well denies any headache nausea vomiting chest pain shortness of breath and the right AKA is clean Review of Systems Review of Systems: All systems reviewed & are unremarkable except as noted in HPI and below Functional Status Ambulation Ability Ability to Ambulate 10 Feet: Standby Assistance Ambulation Assistive Devices: Walker, Wheeled Transfers Ability Ability to Transfer In/Out of Chair: Independent Exam Const: General: comfortable, no acute distress and uncomfortable HENMT: General nose exam: Normal nares present Mouth: Yes moist mucous membranes Eyes: General: appearance normal, both eyes and all related structures Neck: Neck: supple and no JVD Resp: Effort & Inspection: normal respiratory effort Auscultation: clear to auscultation bilaterally Cardio: Rate: regular rate Rhythm: regular rhythm GI: GI Palp: Yes Soft to palpation Auscultation: normal bowel sounds Skin: General skin exam: normal color and no rashes or lesions noted Neuro: Other: patient is awake alert and well oriented not any distress normal speech and language function the weakness is improving right AKA is clean Extrem: Other: right AKA is clean Psych: Mental Status: mental status grossly normal Objective Data Vital Signs Vital Signs: Vital Signs - 24 hr 08/18/20 14:00 08/18/20 16:36 08/18/20 17:51 Temperature 37.0 C 36.9 C 37.1 C Pulse Rate 66 84 102 H Respiratory Rate 18 16 20 Blood Pressure 106/55 L 114/52 L 128/62 Pulse Oximetry 98 100 100 08/18/20 18:52 08/18/20 19:45 08/18/20 20:19 Temperature 36.9 C 36.8 C Pulse Rate 100 91 100 Respiratory Rate 18 16 Blood Pressure 130/68 119/67 Pulse Oximetry 100 100 08/18/20 22:00 08/19/20 05:54 08/19/20 08:21 Temperature 36.6 C 36.5 C Pulse Rate 88 79 72 Respiratory Rate 16 18 Blood Pressure 123/58 L 141/67 H Pulse Oximetry 100 100 Intake/Output Intake/Output: Intake & Output 08/16/20 08/17/20 08/18/20 08/19/20 23:59 23:59 23:59 23:59 Intake Total 206 411 0062 240 Balance 878 870 3407 240 Meds/Results Medications: Active Medications Generic Name Dose Route Start Last Admin Trade Name Freq PRN Reason Stop Dose Admin Acetaminophen 325 mg 08/10/20 19:29 08/18/20 20:18 Tylenol Tablet PO 325 mg Q4H PRN Administration Pain (Scale Score 4-6) Apixaban 5 mg 08/10/20 21:00 08/19/20 08:21 Eliquis PO 5 mg Q12HR ELLIOT Administration Atorvastatin Calcium 40 mg 08/10/20 21:00 08/18/20 20:19 Lipitor PO 40 mg HS ELLIOT Administration Bacitracin/Polymyxin B Sulfate 1 applic 08/12/20 09:00 08/18/20 10:47 Polysporin TOPICAL 1 applic DAILY ELLIOT Administration Carvedilol 6.25 mg 08/10/20 21:00 08/19/20 08:21 Coreg PO 6.25 mg Q12HR ELLIOT Administration Insulin Glargine 10 units 08/10/20 21:00 08/18/20 20:20 Lantus SUB-Q 10 units HS ELLIOT Administration Levetiracetam 1,000 mg 08/10/20 21:00 08/19/20 08:22 Keppra Tablet PO 1,000 mg Q12HR ELLIOT Administration Lisinopril 10 mg 08/11/20 09:00 08/17/20 07:53 Prinivil PO 10 mg DAILY ELLIOT Administration Metformin HCl 1,000 mg 08/11/20 09:00 08/19/20 08:21 Glucophage PO 1,000 mg DAILY ELLIOT Administration Oxycodone/Acetaminophen 1 tablet 08/10/20 17:53 08/16/20 09:54 Percocet 5-325 Mg PO 1 tablet Q4H PRN Administration Pain (Scale Score 7-10) Polyethylene Glycol 17 gm 08/10/20 17:53 Miralax PO DAILY PRN Constipation Labs Labs: Laboratory Results - last 24 hr 08/18/20 08/18/20 08/18/20 06:10 12:03 17:22 Hgb Hct POC Capillary Glucose 235 H 172 H Blood Type B Positi
[2020-08-19] MEDS: oxyCODONE/ACETAMINOPHEN 5-325 MG TABLET 1 TABLET PO (13:14)
[2020-08-19 14:00] VITALS: BP 125/55; PULSE 91; RESP 18; TEMP 36.1; O2SAT 100
--- NOTE | 2020-08-19 14:01 | PCPTNOTE ---
Chuy Yap was evaluated for a wheeled walker on 08/19/2020 by this physical therapist. The wheeled walker will resolve patient's mobility limitations and will be used for ADL's within the home. The patient can safely use the wheeled walker. ?The wheeled walker will resolve the patient?s mobility deficits, including transfers/ADL's/gait short distances.
--- NOTE | 2020-08-19 14:09 | PCPTNOTE ---
Sheeba Gutierrez, PT completed an inpatient rehab wheelchair evaluation on Chuy Yap on 08/19/2020. The patient is unable to safely and independently ambulate household distances due to their current impairments. Their diagnosis is Stroke/ R AKA and their impairments include decreased strength, decreased endurance, decreased range of motion, decreased balance, lower extremity weakness, and ataxia. Chuy's weight bearing status is non weight-bearing on the right lower leg. The patient demonstrates significant functional mobility limitations that impair their ability to participate in mobility-related activities of daily living (MRADLs), including toileting, feeding, dressing, grooming, and bathing in the customary locations in the home. These limitations cannot be sufficiently resolved by the use of an appropriately fitted cane or walker. It is recommended that the patient utilize a wheelchair for functional mobility within the home in order to facilitate optimal safety, independence and participation in all MRADL's and adequately access their home environment on a regular basis. The patient's home provides adequate access between rooms, maneuvering space, and surfaces to accommodate the recommended wheelchair. The use of a wheelchair for functional mobility is strongly recommended and the patient is receptive to using the wheelchair. The use of this wheelchair will significantly improve the patient's ability to participate in MRADLS and the patient will use it on a regular basis in the home. This will facilitate optimal safety, independence, and participation. The patient has demonstrated sufficient physical and mental capabilities needed to safely propel a manual wheelchair that is provided in the home during a typical day. Recommended Wheelchair Frame: standard Recommended Wheelchair Size: 16 x 16 Recommended Wheelchair Cushion: standard Wheelchair Leg Recommendations: right amputee support rest and elevating legrests - Elevating legrests are recommended because the patient has significant edema of the lower extremities that requires an elevating legrest. -Anti-tippers are recommended due to patient demonstrating increased risk for falls. They would benefit from anti-tippers with added safety and stabilization. Sheeba Gutierrez PT ___08/19/20 Evaluating Therapist Date I agree with and certify that the above recommendation is medically necessary. Referring Physician Date I agree with and certify that the above recommendation is medically necessary. Referring Physician Date
[2020-08-19 20:20] VITALS: PULSE 74; RESP 18; O2SAT 100
[2020-08-19 22:05] VITALS: BP 120/64; PULSE 75; RESP 18; TEMP 36.7; O2SAT 100
[2020-08-19 22:12] VITALS: PULSE 74
[2020-08-19] MEDS: ATORVASTATIN 40 MG TABLET PO (22:12)
[2020-08-19] MEDS: INSULIN GLARGINE (*BKC) 100 UNITS/ML 10 UNITS SUB-Q (22:13)
[2020-08-20 06:00] VITALS: BP 110/55; PULSE 68; RESP 18; TEMP 36.5; O2SAT 100
[2020-08-20 06:22] LABS: Glucose Point of Care 140 (65-105)
[2020-08-20 07:13] LABS: Glucose Point of Care 135 (65-105)
[2020-08-20] MEDS: APIXABAN 5 MG TABLET PO ×2 (08:58→20:38)
[2020-08-20 08:59] VITALS: PULSE 78
[2020-08-20] MEDS: carvediloL 6.25 MG TABLET PO ×2 (08:59→20:38)
[2020-08-20] MEDS: levETIRAcetam 500 MG TABLET 1000 MG PO ×2 (08:59→20:38)
[2020-08-20 09:00] VITALS: PULSE 84; RESP 18; O2SAT 97
[2020-08-20] MEDS: metFORMIN HCL 500 MG TABLET 1000 MG PO (09:03)
[2020-08-20] MEDS: BACITRACIN/POLYMYXIN B OINT 15 GM TUBE 1 APPLIC TOPICAL (11:09)
--- NOTE | 2020-08-20 13:00 | PCDIET ---
Nutrition Follow-Up Complete: Nutrition Diagnosis: Increased protein needs related to increased demands for healing as evidenced by recent AKA. Nutrition Goal: Patient to consume 75% of meals/supplements or greater. Goal met. Patient consuming 75-100% of most meals on diabetic diet with Brenton BID which is appropriate. Last recorded weight is 79.5 kg. Recommend obtaining new weight. Bowel Motility: Last documented BM on 08/15/20. Miralax ordered prn. Labs Reviewed: Glu (135) Meds Noted: Lantus, Glucophage, Miralax Additional Notes: Dressing to right leg incision. No pressure sores documented. Nutrition Monitoring and Evaluation: Follow up in 7 days.
[2020-08-20 14:00] VITALS: BP 116/62; PULSE 84; RESP 20; TEMP 36.9; O2SAT 100
[2020-08-20] MEDS: ACETAMINOPHEN 325 MG TABLET PO ×2 (14:02→20:46)
[2020-08-20 20:38] VITALS: PULSE 84
[2020-08-20] MEDS: ATORVASTATIN 40 MG TABLET PO (20:39)
[2020-08-20] MEDS: INSULIN GLARGINE (*BKC) 100 UNITS/ML 10 UNITS SUB-Q (20:42)
[2020-08-20 21:30] LABS: Glucose Point of Care 153 (65-105)
[2020-08-20 22:00] VITALS: BP 125/68; PULSE 79; RESP 18; TEMP 36.6; O2SAT 100
[2020-08-21 06:00] VITALS: BP 106/59; PULSE 99; RESP 16; TEMP 37.7; O2SAT 99
[2020-08-21 06:59] LABS: Glucose Point of Care 117 (65-105)
[2020-08-21] MEDS: levETIRAcetam 500 MG TABLET 1000 MG PO ×2 (09:51→20:42)
[2020-08-21 09:52] VITALS: PULSE 80
[2020-08-21] MEDS: metFORMIN HCL 500 MG TABLET 1000 MG PO (09:52)
[2020-08-21] MEDS: BACITRACIN/POLYMYXIN B OINT 15 GM TUBE 1 APPLIC TOPICAL (09:52)
[2020-08-21] MEDS: APIXABAN 5 MG TABLET PO ×2 (09:52→20:42)
[2020-08-21] MEDS: carvediloL 6.25 MG TABLET PO ×2 (09:52→20:43)
--- NOTE | 2020-08-21 12:03 | WPDNEURORHBP ---
Subjective Date/time seen: 08/21/20 12:03 Interval history: this 65-year-old gentleman is here after having had a stroke hemorrhagic transformation and followed by the right above the knee amputation is doing fairly well denies any headache nausea vomiting chest pain or shortness of breath he has tolerated his therapy quite well and his pain control is fairly decent Review of Systems Review of Systems: All systems reviewed & are unremarkable except as noted in HPI and below Functional Status Ambulation Ability Ability to Ambulate 10 Feet: Independent Ability to Ambulate 50 Feet With 2 Turns: Standby Assistance Ambulation Assistive Devices: Walker, Wheeled Transfers Ability Ability to Transfer In/Out of Chair: Independent Exam Const: General: comfortable and no acute distress HENMT: General nose exam: Normal nares present Mouth: Yes moist mucous membranes Eyes: General: appearance normal, both eyes and all related structures Neck: Neck: supple and no JVD Resp: Effort & Inspection: normal respiratory effort Auscultation: clear to auscultation bilaterally Cardio: Rate: regular rate Rhythm: regular rhythm GI: GI Palp: Yes Soft to palpation Auscultation: normal bowel sounds Skin: General skin exam: normal color and no rashes or lesions noted Neuro: Other: patient is awake alert well oriented time place and person his generalized weakness is improving and he is engage in therapy quite good and making progress Extrem: Other: the site of the right AKA is clean and healthy Objective Data Vital Signs Vital Signs: Vital Signs - 24 hr 08/20/20 14:00 08/20/20 20:38 08/20/20 22:00 Temperature 36.9 C 36.6 C Pulse Rate 84 84 79 Respiratory Rate 20 18 Blood Pressure 116/62 125/68 Pulse Oximetry 100 100 08/21/20 06:00 08/21/20 09:52 Temperature 37.7 C H Pulse Rate 99 80 Respiratory Rate 16 Blood Pressure 106/59 L Pulse Oximetry 99 Intake/Output Intake/Output: Intake & Output 08/18/20 08/19/20 08/20/20 08/21/20 23:59 23:59 23:59 23:59 Intake Total 1080 720 600 240 Balance 1080 720 600 240 Meds/Results Medications: Active Medications Generic Name Dose Route Start Last Admin Trade Name Freq PRN Reason Stop Dose Admin Acetaminophen 325 mg 08/10/20 19:29 08/20/20 20:46 Tylenol Tablet PO 325 mg Q4H PRN Administration Pain (Scale Score 4-6) Apixaban 5 mg 08/10/20 21:00 08/21/20 09:52 Eliquis PO 5 mg Q12HR ELLIOT Administration Atorvastatin Calcium 40 mg 08/10/20 21:00 08/20/20 20:39 Lipitor PO 40 mg HS ELLIOT Administration Bacitracin/Polymyxin B Sulfate 1 applic 08/12/20 09:00 08/21/20 09:52 Polysporin TOPICAL 1 applic DAILY ELLIOT Administration Carvedilol 6.25 mg 08/10/20 21:00 08/21/20 09:52 Coreg PO 6.25 mg Q12HR ELLIOT Administration Insulin Glargine 10 units 08/10/20 21:00 08/20/20 20:42 Lantus SUB-Q 10 units HS ELLIOT Administration Levetiracetam 1,000 mg 08/10/20 21:00 08/21/20 09:51 Keppra Tablet PO 1,000 mg Q12HR ELLIOT Administration Lisinopril 10 mg 08/11/20 09:00 08/17/20 07:53 Prinivil PO 10 mg DAILY ELLIOT Administration Metformin HCl 1,000 mg 08/11/20 09:00 08/21/20 09:52 Glucophage PO 1,000 mg DAILY ELLIOT Administration Oxycodone/Acetaminophen 1 tablet 08/10/20 17:53 08/19/20 13:14 Percocet 5-325 Mg PO 1 tablet Q4H PRN Administration Pain (Scale Score 7-10) Polyethylene Glycol 17 gm 08/10/20 17:53 Miralax PO DAILY PRN Constipation Labs Labs: Laboratory Results - last 24 hr 08/20/20 08/21/20 20:48 06:54 POC Capillary Glucose 153 H 117 H Progress Note: A&P Assessment and Plan (1) Acute blood loss anemia: Code(s): D62 - Acute posthemorrhagic anemia Status: Acute (2) History of loop recorder: Code(s): Z98.890 - Other specified postprocedural states Status: Acute (3) Hypertension: Code(s):
[2020-08-21 14:00] VITALS: BP 110/67; PULSE 81; RESP 20; TEMP 36.7; O2SAT 100
[2020-08-21 20:43] VITALS: PULSE 80
[2020-08-21] MEDS: ATORVASTATIN 40 MG TABLET PO (20:43)
[2020-08-21] MEDS: INSULIN GLARGINE (*BKC) 100 UNITS/ML 10 UNITS SUB-Q (20:43)
[2020-08-21] MEDS: oxyCODONE/ACETAMINOPHEN 5-325 MG TABLET 1 TABLET PO (20:49)
[2020-08-21 21:11] LABS: Glucose Point of Care 213 (65-105)
[2020-08-21 21:21] VITALS: BP 112/53; PULSE 85; RESP 18; TEMP 36.8; O2SAT 99
[2020-08-22 05:50] VITALS: BP 120/58; PULSE 74; RESP 18; TEMP 36.4; O2SAT 100
[2020-08-22 06:51] LABS: Glucose Point of Care 141 (65-105)
[2020-08-22 10:16] VITALS: PULSE 74
[2020-08-22] MEDS: metFORMIN HCL 500 MG TABLET 1000 MG PO (10:16)
[2020-08-22] MEDS: carvediloL 6.25 MG TABLET PO ×2 (10:16→20:19)
[2020-08-22] MEDS: levETIRAcetam 500 MG TABLET 1000 MG PO ×2 (10:16→20:19)
[2020-08-22] MEDS: APIXABAN 5 MG TABLET PO ×2 (10:18→20:19)
--- NOTE | 2020-08-22 12:41 | WPDNEURORHBP ---
Subjective Date/time seen: 08/22/20 12:41 65 years old with right frontal lobe hemorrhagic infarct and past medical history of 1. Coronary artery disease 2. Hypertension 3. Hyperlipidemia 4. Diabetes mellitus 5. No history of large vessel occlusion on CTA 6. Possible seizure on EEG 7. Status post right [id number] amputation while in the hospital during the stroke treatment Review of Systems Review of Systems: All systems reviewed & are unremarkable except as noted in HPI and below Functional Status Ambulation Ability Ability to Ambulate 10 Feet: Standby Assistance Ability to Ambulate 50 Feet With 2 Turns: Standby Assistance Ambulation Assistive Devices: Walker, Wheeled Transfers Ability Ability to Transfer In/Out of Chair: Independent Exam Narrative: Exam Narrative: examination reveals him to be awake alert cooperative in no obvious acute distress ear nose throat examination normal mucous membranes moist with no obvious drainage eyes clear with no redness neck is supple with no restricted range of motion no JVD heart regular lungs clear abdomen soft nontender skin normal neurologically awake alert oriented x3 has generalized weakness which is obviously improving and deep tendon reflexes are sluggish Objective Data Vital Signs Vital Signs: Vital Signs - 24 hr 08/21/20 14:00 08/21/20 20:43 08/21/20 21:21 Temperature 36.7 C 36.8 C Pulse Rate 81 80 85 Respiratory Rate 20 18 Blood Pressure 110/67 112/53 L Pulse Oximetry 100 99 08/22/20 05:50 08/22/20 10:16 Temperature 36.4 C Pulse Rate 74 74 Respiratory Rate 18 Blood Pressure 120/58 L Pulse Oximetry 100 Intake/Output Intake/Output: Intake & Output 08/19/20 08/20/20 08/21/20 08/22/20 23:59 23:59 23:59 23:59 Intake Total 720 600 720 240 Balance 720 600 720 240 Meds/Results Medications: Active Medications Generic Name Dose Route Start Last Admin Trade Name Freq PRN Reason Stop Dose Admin Acetaminophen 325 mg 08/10/20 19:29 08/20/20 20:46 Tylenol Tablet PO 325 mg Q4H PRN Administration Pain (Scale Score 4-6) Apixaban 5 mg 08/10/20 21:00 08/22/20 10:18 Eliquis PO 5 mg Q12HR ELLIOT Administration Atorvastatin Calcium 40 mg 08/10/20 21:00 09/25/20 20:43 Lipitor PO 40 mg HS ELLIOT Administration Bacitracin/Polymyxin B Sulfate 1 applic 08/12/20 09:00 08/21/20 09:52 Polysporin TOPICAL 1 applic DAILY ELLIOT Administration Carvedilol 6.25 mg 08/10/20 21:00 08/22/20 10:16 Coreg PO 6.25 mg Q12HR ELLIOT Administration Insulin Glargine 10 units 08/10/20 21:00 08/21/20 20:43 Lantus SUB-Q 10 units HS ELLIOT Administration Levetiracetam 1,000 mg 08/10/20 21:00 08/22/20 10:16 Keppra Tablet PO 1,000 mg Q12HR ELLIOT Administration Lisinopril 10 mg 08/11/20 09:00 08/17/20 07:53 Prinivil PO 10 mg DAILY ELLIOT Administration Metformin HCl 1,000 mg 08/11/20 09:00 08/22/20 10:16 Glucophage PO 1,000 mg DAILY ELLIOT Administration Oxycodone/Acetaminophen 1 tablet 08/10/20 17:53 08/21/20 20:49 Percocet 5-325 Mg PO 1 tablet Q4H PRN Administration Pain (Scale Score 7-10) Polyethylene Glycol 17 gm 08/10/20 17:53 Miralax PO DAILY PRN Constipation Labs Labs: Laboratory Results - last 24 hr 08/21/20 08/22/20 20:41 06:45 POC Capillary Glucose 213 H 141 H Progress Note: A&P Assessment and Plan (1) Acute blood loss anemia: Code(s): D62 - Acute posthemorrhagic anemia Status: Acute (2) History of loop recorder: Code(s): Z98.890 - Other specified postprocedural states Status: Acute (3) Hypertension: Code(s): I10 - Essential (primary) hypertension Status: Acute (4) Unilateral AKA: Code(s): S78.119A - Complete traumatic amputation at level between unspecified hip and knee, initial encounter Status: Acute (5) Acute hemorrhagic infarction of brain: Code(s): I63.89 - O
[2020-08-22 14:00] VITALS: BP 119/94; PULSE 100; RESP 16; TEMP 36.8; O2SAT 100
[2020-08-22] MEDS: BACITRACIN/POLYMYXIN B OINT 15 GM TUBE 1 APPLIC TOPICAL (14:19)
[2020-08-22 20:19] VITALS: PULSE 88
[2020-08-22] MEDS: ATORVASTATIN 40 MG TABLET PO (20:19)
[2020-08-22] MEDS: INSULIN GLARGINE (*BKC) 100 UNITS/ML 10 UNITS SUB-Q (20:20)
[2020-08-22] MEDS: oxyCODONE/ACETAMINOPHEN 5-325 MG TABLET 1 TABLET PO (20:26)
[2020-08-22 20:57] VITALS: BP 108/48; PULSE 70; RESP 18; TEMP 36.8; O2SAT 100
[2020-08-22 21:04] LABS: Glucose Point of Care 127 (65-105)
[2020-08-23 05:12] VITALS: BP 117/55; PULSE 71; RESP 18; TEMP 36.4; O2SAT 100
[2020-08-23 06:46] LABS: Glucose Point of Care 106 (65-105)
[2020-08-23 09:49] VITALS: PULSE 71
[2020-08-23] MEDS: APIXABAN 5 MG TABLET PO ×2 (09:49→22:40)
[2020-08-23] MEDS: carvediloL 6.25 MG TABLET PO ×2 (09:49→22:40)
[2020-08-23] MEDS: metFORMIN HCL 500 MG TABLET 1000 MG PO (09:49)
[2020-08-23] MEDS: levETIRAcetam 500 MG TABLET 1000 MG PO ×2 (09:49→22:40)
[2020-08-23] MEDS: BACITRACIN/POLYMYXIN B OINT 15 GM TUBE 1 APPLIC TOPICAL (09:50)
[2020-08-23 14:00] VITALS: BP 128/58; PULSE 76; RESP 20; TEMP 36.3; O2SAT 100
[2020-08-23 20:20] LABS: Glucose Point of Care 212 (65-105)
[2020-08-23 22:00] VITALS: BP 148/68; PULSE 80; RESP 16; TEMP 36.8; O2SAT 100
[2020-08-23 22:40] VITALS: PULSE 80
[2020-08-23] MEDS: ATORVASTATIN 40 MG TABLET PO (22:41)
[2020-08-23] MEDS: INSULIN GLARGINE (*BKC) 100 UNITS/ML 10 UNITS SUB-Q (22:44)
[2020-08-24 06:00] VITALS: BP 144/75; PULSE 71; RESP 18; TEMP 36.4; O2SAT 100
[2020-08-24 07:16] LABS: Glucose Point of Care 143 (65-105)
[2020-08-24 08:44] VITALS: PULSE 71
[2020-08-24] MEDS: metFORMIN HCL 500 MG TABLET 1000 MG PO (08:44)
[2020-08-24] MEDS: carvediloL 6.25 MG TABLET PO ×2 (08:44→21:47)
[2020-08-24] MEDS: levETIRAcetam 500 MG TABLET 1000 MG PO ×2 (08:44→21:46)
[2020-08-24] MEDS: APIXABAN 5 MG TABLET PO ×2 (08:44→21:47)
--- NOTE | 2020-08-24 10:22 | WPDNEURORHBP ---
Subjective Date/time seen: 08/24/20 10:22 65 years old with right frontal lobe hemorrhagic infarct and past medical history of coronary artery disease, hypertension, hyperlipidemia, diabetes mellitus, and no history of large vessel occlusion on CTA and possible seizures in addition to the right above the knee amputation continues to be involved in the physical therapy and occupational therapy ambulating with standby assistance with a wheeled walker Review of Systems Review of Systems: All systems reviewed & are unremarkable except as noted in HPI and below Functional Status Ambulation Ability Ability to Ambulate 10 Feet: Standby Assistance Ability to Ambulate 50 Feet With 2 Turns: Standby Assistance Ambulation Assistive Devices: Walker, Wheeled Transfers Ability Ability to Transfer In/Out of Chair: Independent Exam Narrative: Exam Narrative: examination reveals him to be awake alert cooperative with no specific complaints ear nose throat examination normal there is no drainage from the mucous membranes heart regular lungs clear with no rhonchi or crepitation abdomen is soft with no organomegaly neurological exam is essentially unchanged Objective Data Vital Signs Vital Signs: Vital Signs - 24 hr 08/23/20 14:00 08/23/20 22:00 08/23/20 22:40 Temperature 36.3 C L 36.8 C Pulse Rate 76 80 80 Respiratory Rate 20 16 Blood Pressure 128/58 L 148/68 H Pulse Oximetry 100 100 08/24/20 06:00 08/24/20 08:44 Temperature 36.4 C L Pulse Rate 71 71 Respiratory Rate 18 Blood Pressure 144/75 H Pulse Oximetry 100 Intake/Output Intake/Output: Intake & Output 08/21/20 08/22/20 08/23/20 08/24/20 23:59 23:59 23:59 23:59 Intake Total 720 720 720 360 Balance 720 720 720 360 Meds/Results Medications: Active Medications Generic Name Dose Route Start Last Admin Trade Name Freq PRN Reason Stop Dose Admin Acetaminophen 325 mg 08/10/20 19:29 08/20/20 20:46 Tylenol Tablet PO 325 mg Q4H PRN Administration Pain (Scale Score 4-6) Apixaban 5 mg 08/10/20 21:00 08/24/20 08:44 Eliquis PO 5 mg Q12HR ELLIOT Administration Atorvastatin Calcium 40 mg 08/10/20 21:00 08/23/20 22:41 Lipitor PO 40 mg HS ELLIOT Administration Bacitracin/Polymyxin B Sulfate 1 applic 08/12/20 09:00 08/23/20 09:50 Polysporin TOPICAL 1 applic DAILY ELLIOT Administration Carvedilol 6.25 mg 08/10/20 21:00 08/24/20 08:44 Coreg PO 6.25 mg Q12HR ELLIOT Administration Insulin Glargine 10 units 08/10/20 21:00 08/23/20 22:44 Lantus SUB-Q 10 units HS ELLIOT Administration Levetiracetam 1,000 mg 08/10/20 21:00 08/24/20 08:44 Keppra Tablet PO 1,000 mg Q12HR ELLIOT Administration Lisinopril 10 mg 08/11/20 09:00 08/17/20 07:53 Prinivil PO 10 mg DAILY ELLIOT Administration Metformin HCl 1,000 mg 08/11/20 09:00 08/24/20 08:44 Glucophage PO 1,000 mg DAILY ELLIOT Administration Oxycodone/Acetaminophen 1 tablet 08/10/20 17:53 08/22/20 20:26 Percocet 5-325 Mg PO 1 tablet Q4H PRN Administration Pain (Scale Score 7-10) Polyethylene Glycol 17 gm 08/10/20 17:53 Miralax PO DAILY PRN Constipation Labs Labs: Laboratory Results - last 24 hr 08/23/20 08/24/20 20:02 06:52 POC Capillary Glucose 212 H 143 H Progress Note: A&P Assessment and Plan (1) Acute blood loss anemia: Code(s): D62 - Acute posthemorrhagic anemia Status: Acute (2) History of loop recorder: Code(s): Z98.890 - Other specified postprocedural states Status: Acute (3) Hypertension: Code(s): I10 - Essential (primary) hypertension Status: Acute (4) Diabetes mellitus: Code(s): E11.9 - Type 2 diabetes mellitus without complications Status: Acute (5) Unilateral AKA: Code(s): S78.119A - Complete traumatic amputation at level between unspecified hip and knee, initial encounter Status: Acute (6) Acute hemorrhag
[2020-08-24 14:00] VITALS: BP 119/54; PULSE 86; RESP 16; TEMP 36.7; O2SAT 100
[2020-08-24] MEDS: BACITRACIN/POLYMYXIN B OINT 15 GM TUBE 1 APPLIC TOPICAL (18:56)
[2020-08-24 20:45] LABS: Glucose Point of Care 175 (65-105)
[2020-08-24 21:28] VITALS: BP 114/53; PULSE 69; RESP 18; TEMP 36.8; O2SAT 99
[2020-08-24 21:47] VITALS: PULSE 70
[2020-08-24] MEDS: oxyCODONE/ACETAMINOPHEN 5-325 MG TABLET 1 TABLET PO (21:47)
[2020-08-24] MEDS: ATORVASTATIN 40 MG TABLET PO (21:47)
[2020-08-24] MEDS: polyethylene glycoL 3350 17 GM POWD.PACK PO (21:47)
[2020-08-24] MEDS: INSULIN GLARGINE (*BKC) 100 UNITS/ML 10 UNITS SUB-Q (21:55)
[2020-08-25 05:10] VITALS: BP 122/57; PULSE 58; RESP 18; TEMP 36; O2SAT 100
[2020-08-25 05:34] LABS: Basophils Percent Auto 0.4 % (0.2-1.2); Eosinophils Absolute Auto 0.2 K/mm3 (0-0.3); Eosinophils Percent Auto 2.9 % (0-4.4); Hematocrit 30.8 % (42.0-52.0); Hemoglobin 9.9 g/dL (14.0-18.0); Immature Granulocyte Absolute 0.02 K/mm3 (0.00-0.031); Immature Granulocyte Percent A 0.4 % (0-0.5); Lymphocytes Absolute Auto 1.75 K/mm3 (0.9-3.2); Lymphocytes Percent Auto 32.1 % (18.3-44.2); Mean Corpuscular HGB Conc 32.1 g/dl (32-36); Mean Corpuscular Hemoglobin 27.8 pg (26-34); Mean Corpuscular Volume 86.5 fl (80-100); Mean Platelet Volume 10.8 fl (7.4-10.4); Monocytes Absolute Auto 0.4 K/mm3 (0.1-0.6); Monocytes Percent Auto 7.3 % (2.6-8.5); Neutrophils Absolute Auto 3.1 K/mm3 (1.3-6.7); Neutrophils Percent Auto 56.9 % (45.5-73.1); Platelet Count Result 257 k/mm3 (150-375); Red Blood Count 3.56 M/mm3 (4.6-6.20); Red Cell Distribution Width 13.6 % (11.5-14.5); White Blood Count 5.5 K/mm3 (4.5-10.0)
[2020-08-25 05:56] LABS: Anion Gap 5 mmol/L (8-16); Blood Urea Nitrogen 15 mg/dL (9-20); Calcium 8.8 mg/dL (8.4-10.2); Carbon Dioxide 29 mmol/L (22-30); Chloride 107 mmol/L (98-107); Estimated CRCL calculation 111 ml/min; Estimated Glomerular Filt Rate > 60; Glucose 142 mg/dL (75-110); Potassium 3.9 mmol/L (3.4-5.0); Sodium 141 mmol/L (137-145)
[2020-08-25 06:51] LABS: Glucose Point of Care 134 (65-105)
[2020-08-25 08:53] VITALS: PULSE 58
[2020-08-25] MEDS: carvediloL 6.25 MG TABLET PO ×2 (08:53→20:33)
[2020-08-25] MEDS: levETIRAcetam 500 MG TABLET 1000 MG PO ×2 (08:53→20:32)
[2020-08-25] MEDS: APIXABAN 5 MG TABLET PO ×2 (08:54→20:33)
[2020-08-25] MEDS: BACITRACIN/POLYMYXIN B OINT 15 GM TUBE 1 APPLIC TOPICAL (08:54)
[2020-08-25] MEDS: metFORMIN HCL 500 MG TABLET 1000 MG PO (08:55)
--- NOTE | 2020-08-25 10:39 | PCOTNOTE ---
Mr. Yap was evaluated for a tub transfer bench on 08/25/10 by this occupational therapist. The tub transfer bench will resolve that patient?s self-care limitations and will be used for bathing within the home. The patient is unable to stand or step over the edge of the tub safely for completion of bathing in shower due to right above knee amputation and stroke, he will require a seat for bathing. The patient can safely and independently complete bathing from a tub transfer bench. The patient's has participated in family training and exhibits good understanding of safety and use of tub transfer bench. I agree with and certify that the above recommendation is medically necessary. Referring Physician Date
[2020-08-25 14:00] VITALS: BP 116/57; PULSE 75; RESP 18; TEMP 36.6; O2SAT 100
--- NOTE | 2020-08-25 14:27 | WPDNEURORHBP ---
Subjective Date/time seen: 08/25/20 14:27 Interval history: this 65-year-old Afro-Filipino gentleman is here after having had left BKA he is doing well and is going to be discharged tomorrow denies any headache nausea vomiting chest pain shortness of breath the case was discussed in over team conference Review of Systems Review of Systems: All systems reviewed & are unremarkable except as noted in HPI and below Functional Status Ambulation Ability Ability to Ambulate 10 Feet: Independent Ability to Ambulate 50 Feet With 2 Turns: Independent Ambulation Assistive Devices: Walker, Wheeled Transfers Ability Ability to Transfer In/Out of Chair: Independent Exam Const: General: comfortable and no acute distress HENMT: General nose exam: Normal nares present Mouth: Yes moist mucous membranes Eyes: General: appearance normal, both eyes and all related structures Neck: Neck: supple and no JVD Resp: Effort & Inspection: normal respiratory effort Auscultation: clear to auscultation bilaterally Cardio: Rate: regular rate Rhythm: regular rhythm GI: GI Palp: Yes Soft to palpation Auscultation: normal bowel sounds Skin: General skin exam: normal color and no rashes or lesions noted Neuro: Other: the he is awake alert well oriented following all commands PE neurological status is slowly improving headed fact he will be ready to be discharged tomorrow Extrem: Other: left BKA is clean Psych: Mental Status: mental status grossly normal Objective Data Vital Signs Vital Signs: Vital Signs - 24 hr 08/24/20 21:28 08/24/20 21:47 08/25/20 05:10 Temperature 36.8 C 36.0 C L Pulse Rate 69 70 58 L Respiratory Rate 18 18 Blood Pressure 114/53 L 122/57 L Pulse Oximetry 99 100 08/25/20 08:53 08/25/20 14:00 Temperature 36.6 C Pulse Rate 58 L 75 Respiratory Rate 18 Blood Pressure 116/57 L Pulse Oximetry 100 Intake/Output Intake/Output: Intake & Output 08/22/20 08/23/20 08/24/20 08/25/20 23:59 23:59 23:59 23:59 Intake Total 479 443 6532 480 Balance 507 399 3554 480 Meds/Results Medications: Active Medications Generic Name Dose Route Start Last Admin Trade Name Freq PRN Reason Stop Dose Admin Acetaminophen 325 mg 08/10/20 19:29 08/20/20 20:46 Tylenol Tablet PO 325 mg Q4H PRN Administration Pain (Scale Score 4-6) Apixaban 5 mg 08/10/20 21:00 08/25/20 08:54 Eliquis PO 5 mg Q12HR ELLIOT Administration Atorvastatin Calcium 40 mg 08/10/20 21:00 08/24/20 21:47 Lipitor PO 40 mg HS ELLIOT Administration Bacitracin/Polymyxin B Sulfate 1 applic 08/12/20 09:00 08/25/20 08:54 Polysporin TOPICAL 1 applic DAILY ELLIOT Administration Carvedilol 6.25 mg 08/10/20 21:00 08/25/20 08:53 Coreg PO 6.25 mg Q12HR ELLIOT Administration Insulin Glargine 10 units 08/10/20 21:00 08/24/20 21:55 Lantus SUB-Q 10 units HS ELLIOT Administration Levetiracetam 1,000 mg 08/10/20 21:00 08/25/20 08:53 Keppra Tablet PO 1,000 mg Q12HR ELLIOT Administration Lisinopril 10 mg 08/11/20 09:00 08/17/20 07:53 Prinivil PO 10 mg DAILY ELLIOT Administration Metformin HCl 1,000 mg 08/11/20 09:00 08/25/20 08:55 Glucophage PO 1,000 mg DAILY ELLIOT Administration Oxycodone/Acetaminophen 1 tablet 08/10/20 17:53 08/24/20 21:47 Percocet 5-325 Mg PO 1 tablet Q4H PRN Administration Pain (Scale Score 7-10) Polyethylene Glycol 17 gm 08/10/20 17:53 08/24/20 21:47 Miralax PO 17 gm DAILY PRN Administration Constipation Labs Labs: Laboratory Results - last 24 hr 08/24/20 08/25/20 08/25/20 20:40 04:59 04:59 WBC 5.5 RBC 3.56 L Hgb 9.9 L Hct 30.8 L MCV 86.5 MCH 27.8 MCHC 32.1 RDW 13.6 Plt Count 257 MPV 10.8 H Immature Gran % (Auto) 0.4 Neut % (Auto) 56.9 Lymph % (Auto) 32.1 [place] % (Auto) 7.3 Eos % (Auto) 2.9 Baso % (Auto) 0.4 Lymph # (Auto) 1.75 [place] # (Auto) 0.
[2020-08-25 20:00] LABS: Glucose Point of Care 103 (65-105)
[2020-08-25 20:33] VITALS: PULSE 68
[2020-08-25] MEDS: ATORVASTATIN 40 MG TABLET PO (20:33)
[2020-08-25] MEDS: oxyCODONE/ACETAMINOPHEN 5-325 MG TABLET 1 TABLET PO (20:33)
[2020-08-25] MEDS: INSULIN GLARGINE (*BKC) 100 UNITS/ML 10 UNITS SUB-Q (20:34)
[2020-08-25 21:15] VITALS: BP 125/52; PULSE 84; RESP 18; TEMP 36.6; O2SAT 99
[2020-08-26 06:00] VITALS: BP 125/64; PULSE 67; RESP 18; TEMP 36.4; O2SAT 100
[2020-08-26 06:12] LABS: Glucose Point of Care 137 (65-105)
[2020-08-26 08:59] VITALS: PULSE 67
[2020-08-26] MEDS: carvediloL 6.25 MG TABLET PO (08:59)
[2020-08-26] MEDS: BACITRACIN/POLYMYXIN B OINT 15 GM TUBE 1 APPLIC TOPICAL (08:59)
[2020-08-26] MEDS: APIXABAN 5 MG TABLET PO (08:59)
[2020-08-26] MEDS: metFORMIN HCL 500 MG TABLET 1000 MG PO (09:00)
[2020-08-26] MEDS: levETIRAcetam 500 MG TABLET 1000 MG PO (09:00)
[2020-08-26] MEDS: oxyCODONE/ACETAMINOPHEN 5-325 MG TABLET 1 TABLET PO (09:07)
--- NOTE | 2020-08-28 14:04 | PM.DS ---
DS: Admitting Diagnosis Admitting Diagnosis Admitting Diagnosis: Stroke/ R AKA DS: Discharge Diagnosis Discharge Diagnosis (1) Acute blood loss anemia: Code(s): D62 - Acute posthemorrhagic anemia Status: Acute (2) History of loop recorder: Code(s): Z98.890 - Other specified postprocedural states Status: Acute (3) Hypertension: Code(s): I10 - Essential (primary) hypertension Status: Acute (4) Diabetes mellitus: Code(s): E11.9 - Type 2 diabetes mellitus without complications Status: Acute (5) Unilateral AKA: Code(s): S78.119A - Complete traumatic amputation at level between unspecified hip and knee, initial encounter Status: Acute (6) Acute hemorrhagic infarction of brain: Code(s): I63.89 - Other cerebral infarction Status: Acute (7) Stroke: Code(s): I63.9 - Cerebral infarction, unspecified Status: Acute DS: Summary Hospital Course Reason for hospitalization: the patient was admitted because of having had rather large frontal hemorrhagic infarction followed by complications which include ischemia of the right lower extremity and he had to undergo right [id number] amputation and other diagnoses mentioned above That she patient received the physical therapy of compression therapy and gait training and was able to achieve the following independent measures Hospital Course: eating independent, oral hygiene independent, toileting and setup, bathing supervision, upper body dressing setup, lower body dressing supervision, footwear independent, rolling in bed independent, sitting to lying independent, lying to sitting independent, sit to stand independent, chair transfers independent, toilet transfers independent, car transfers independent, walking 10 feet independent, walking 50 feet with to turns set up, walking 10 feet uneven surfaces independent, car better step setup, 4 step supervision, 12 status patient was unable to be Freya object set up, wheelchair 50 feet independent wheelchair and 58 independent, The patient was sent home with home health with the follow-up with multiple physicians involved with his care no falls were recorded Time Spent with Patient Time attestation: Total time spent providing and/or coordinating discharge services: Exam Const: General: comfortable and no acute distress HENMT: General nose exam: Normal nares present Mouth: Yes dry mucous membranes Eyes: General: appearance normal, both eyes and all related structures Neck: Neck: supple and no JVD Resp: Effort & Inspection: normal respiratory effort Auscultation: clear to auscultation bilaterally Cardio: Rate: regular rate Rhythm: regular rhythm GI: GI Palp: Yes Soft to palpation Auscultation: normal bowel sounds Skin: General skin exam: normal color and no rashes or lesions noted Neuro: Other: patient remains awake alert well oriented follows all commands well strength has significantly improved and the weakness whatever she had from the hemorrhagic infarction has also improved to a great degree Extrem: Other: right [id number] amputation Psych: Mental Status: mental status grossly normal Discharge Plan Discharge Attending physician on discharge: Rene Mcgee Discharging Clinician: Rene Mcgee Anticipated Discharge Date/Time: 08/26/20 14:30 Patient Disposition: Home Health Service Activity: may shower and no driving Diet: as tolerated Wound Care Instructions: change dressing daily Discharge Instructions: Per Care Coordination: Home Health services have been arranged through [facility]. [facility] can be contacted at [phone]. Please fax discharge instructions to [facility] at [phone]. Patient Instructions: Antibiotic Form Stand Alone Forms: General Discharge Information Follow-up/Referrals: Dr Jared Mccarty [Other] (Follow up in [address]) [address] Byrne [Other] (Cardiology follow u
== END 2020-08-26 13:10 | disposition home health service (06) | DRG 57 ==
PROVIDERS: Psychiatry & Neurology Neurology; Admitting Provider Psychiatry & Neurology Neurology; PCP Family Medicine; Visit Provider Psychiatry & Neurology Neurology
DX: I69.351 Hemiplegia and hemiparesis following cerebral infarction affecting right dominant side (principal); D62 Acute posthemorrhagic anemia; Z47.81 Encounter for orthopedic aftercare following surgical amputation; Z89.611 Acquired absence of right leg above knee; E11.51 Type 2 diabetes mellitus with diabetic peripheral angiopathy without gangrene; E11.65 Type 2 diabetes mellitus with hyperglycemia; E78.5 Hyperlipidemia, unspecified; I25.10 Atherosclerotic heart disease of native coronary artery without angina pectoris; I11.0 Hypertensive heart disease with heart failure; I50.9 Heart failure, unspecified; R56.9 Unspecified convulsions; Z95.1 Presence of aortocoronary bypass graft; Z87.891 Personal history of nicotine dependence; Z79.4 Long term (current) use of insulin
CPT/HCPCS: 36415; 36430; 80048; 80061; 83036; 85014; 85018; 85025; 86850; 86900; 86901; 86923; 92507; 92523; 97110; 97112; 97116; 97129; 97130; 97162; 97165; 97530; 97535; 97542; A9270; J1815; J7050; P9016